=== PATIENT | female | born 2000 | race American Indian/Alaskan Native ===

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

== ENCOUNTER 2023-01-09 16:34 | Emergency (ER) | payer MEDICAID ==
[2023-01-09 16:59] VITALS: BP 114/77; PULSE 108
[2023-01-09] MEDS ORDERED: Ondansetron 4 MG/2 ML SDV IVPUSH ONE (17:07)
[2023-01-09] MEDS ORDERED: Ondansetron 4 MG/2 ML SDV IM ONE (17:07)
[2023-01-09] MEDS ORDERED: Take Home: Amoxicillin 500 MG, 6 Cap Pack PO ONE (18:22)
[2023-01-09] MEDS ORDERED: Diphtheria,Pertussis(Acell),Tetanus Vaccine 0.5 ML Syringe IM ONE (18:30)
== END 2023-01-09 18:41 | disposition home or self-care (01) ==
LOC: DL.ED 16:34
DX: S00.91XA Abrasion of unspecified part of head, initial encounter (principal); H65.93 Unspecified nonsuppurative otitis media, bilateral; W19.XXXA Unspecified fall, initial encounter
CPT/HCPCS: 36415; 70450; 72125; 84703; 90471; 90715; 96372; 99283; 99284-25; A9270-GY; J2405